=== PATIENT | female | born 1965 | race Two or more races ===

== ENCOUNTER 2020-10-12 20:04 | Inpatient (IN) | payer MEDICAID, OTHER ==
[~2020-10-12] VITALS: Ht 165.1 cm; Wt 85.6 kg
[2020-10-12] MEDS ORDERED: DexAMETHasone INJECTION 10 MG in D5W 5% 50 ML IV ONE (21:45)
[2020-10-12 22:11] LABS: Basophils # (auto) 0 10 ^3/uL (0-0.2); Basophils % (auto) 0.5 % (0.0-2.0); Eosinophils # (auto) 0 10 ^3/uL (0-0.8); Eosinophils % (auto) 0.4 % (0.0-7.0); Hematocrit 40.6 % (36.0-46.0); Hemoglobin 14.2 g/dL (12.2-16.2); Lymphocytes # (auto) 1.5 10 ^3/uL (0.4-5.4); Lymphocytes % (auto) 18.3 % (10.0-50.0); Mean Corpuscular Hemoglobin 30.7 pg (28.0-32.0); Mean Corpuscular Volume 87.9 fL (80.0-100.0); Monocytes # (auto) 0.4 10 ^3/uL (0-1.3); Monocytes % (auto) 5.5 % (0.0-12.0); Neutrophils # (auto) 6.1 10 ^3/uL (1.6-8.6); Neutrophils % (auto) 75.3 % (37.0-80.0); Nucleated Red Blood Cells % 0.1 %; Red Blood Cells 4.61 10^6/uL (4.0-5.20); Red Cell Distribution Width 13.4 % (11.8-14.3); White Blood Cell 8.1 10^3/uL (4.4-10.8)
[2020-10-12 22:32] LABS: Albumin 3.7 g/dL (3.4-5.0); Anion Gap 6 (5-15); Blood Urea Nitrogen 19 mg/dL (7-18); Carbon Dioxide 24 mmol/L (21-32); Chloride 103 mmol/L (98-107); Glucose 132 mg/dL (74-106); Magnesium 2.5 mg/dL (1.6-2.6); Potassium 3.5 mmol/L (3.5-5.1); Sodium 133 mmol/L (136-145)
[2020-10-12 22:42] LABS: INR 0.91 (0.9-1.15); Partial Thromboplastin Time 26.6 sec (23.0-31.2)
[2020-10-12 22:48] LABS: Alanine Aminotransferase 87 U/L (13-56); Alkaline Phosphatase 91 U/L (45-117); Aspartate Aminotransferase 57 U/L (15-37); BUN/Creatinine Ratio 18.4; Bilirubin, Total 0.6 mg/dL (0.2-1.0); CRP High Sensitivity 2.45 mg/dL (< 0.3); GFR African American 71 mL/min; GFR Non-African American 59 mL/min; Lactate Dehydrogenase 266 U/L (84-246); Total Protein 8.2 g/dL (6.4-8.2)
[2020-10-12 23:09] LABS: Urine Bacteria NONE SEEN /hpf (None Seen); Urine Blood Negative /uL (Negative); Urine Mucus FEW (None Seen); Urine Specific Gravity 1.011 (1.001-1.035); Urine WBC 1 /hpf (0 - 5)
[2020-10-13] MEDS ORDERED: DEXTROSE (50%) 50ML SYRG IV PRN (02:45)
[2020-10-13] MEDS ORDERED: ACETAMINOPHEN 500 MG TAB PO PRN (02:45)
[2020-10-13] MEDS ORDERED: ONDANSETRON HCL 4 MG/2 ML VIAL IV PRN (02:45)
[2020-10-13] MEDS ORDERED: NITROGLYCERIN 0.4 MG SL TAB SL PRN (02:45)
[2020-10-13] MEDS ORDERED: SODIUM CHLORIDE 0.9% 1,000 ML IV SCH (02:45)
[2020-10-13] MEDS ORDERED: MORPHINE SULFATE INJECTION 2 MG/ML SYRG IV PRN (02:45)
[2020-10-13] MEDS ORDERED: TEMAZEPAM 15 MG CAP PO ONE (02:45)
[2020-10-13] MEDS ORDERED: DOCUSATE SOD 100 MG CAP PO PRN (02:45)
[2020-10-13] MEDS: DOXYCYCLINE 100MG/250ML 250 ML IV SCH ×2 (03:12→22:52)
[2020-10-13 05:10] VITALS: BP 117/77
[2020-10-13 05:30] VITALS: BP 117/77
[2020-10-13] MEDS: InsuLIN REG 1unit/0.01ml Soln (100units/ml) SC SCH ×4 (06:44→22:00)
[2020-10-13] MEDS: ACCU-CHEK COMFORT CURVE STRIP VI SCH ×4 (06:44→22:08)
[2020-10-13 08:00] VITALS: BP 125/72
[2020-10-13] MEDS: BUDESONIDE (INHALATION) 180 MCG IH IN SCH ×2 (09:35→22:00)
[2020-10-13] MEDS: ALBUTEROL SULF HFA 90MCG INH 200DOSE IN PRN ×2 (09:35→22:33)
[2020-10-13] MEDS: MULTIPLE VITAMIN TAB PO SCH (10:20)
[2020-10-13] MEDS: ZINC SULFATE 220mg CAP or TAB PO SCH (10:20)
[2020-10-13] MEDS: FAMOTIDINE (10MG/ML) 2ML VL IV SCH ×2 (10:20→22:52)
[2020-10-13] MEDS: CHOLECALCIFEROL (VITD3) 2,000 UNIT CAP/TAB PO SCH (10:20)
[2020-10-13] MEDS: DexAMETHasone SOD PHOS 10MG/1ML VIAL INJ IV SCH (10:20)
[2020-10-13] MEDS: ENOXAPARIN SOD 40 MG/0.4 ML SYRINGE SC SCH ×2 (10:20→22:08)
[2020-10-13] MEDS: ASCORBIC ACID 1,000 MG TAB PO SCH (10:20)
[2020-10-13] MEDS ORDERED: diphenhdrAMINE HCL 50 MG/1 ML VL IV PRN (12:30)
[2020-10-13] MEDS ORDERED: REMDESIVIR PER PHARMACY 0 ML IV SCH (12:30)
[2020-10-13 16:00] VITALS: BP 135/80
[2020-10-13] MEDS ORDERED: REMDESIVIR 200 MG in NS 210ml LOADING DOSE ADULT IV ONE ×2 (17:00→20:00)
[2020-10-13 23:57] VITALS: BP 110/53
[2020-10-14] MEDS: ACCU-CHEK COMFORT CURVE STRIP VI SCH ×4 (06:33→21:37)
[2020-10-14 06:34] LABS: Basophils # (auto) 0 10 ^3/uL (0-0.2); Basophils % (auto) 0.1 % (0.0-2.0); Eosinophils # (auto) 0 10 ^3/uL (0-0.8); Hematocrit 36.1 % (36.0-46.0); Hemoglobin 12.9 g/dL (12.2-16.2); Lymphocytes # (auto) 1.7 10 ^3/uL (0.4-5.4); Lymphocytes % (auto) 15.1 % (10.0-50.0); Mean Corpuscular Hemoglobin 31.2 pg (28.0-32.0); Mean Corpuscular Hgb Conc. 35.8 g/dL (32.0-36.0); Monocytes # (auto) 0.3 10 ^3/uL (0-1.3); Monocytes % (auto) 2.9 % (0.0-12.0); Neutrophils # (auto) 8.9 10 ^3/uL (1.6-8.6); Neutrophils % (auto) 81.9 % (37.0-80.0); Nucleated Red Blood Cells % 0.1 %; Red Blood Cells 4.15 10^6/uL (4.0-5.20); Red Cell Distribution Width 13.4 % (11.8-14.3); White Blood Cell 10.9 10^3/uL (4.4-10.8)
[2020-10-14] MEDS: InsuLIN REG 1unit/0.01ml Soln (100units/ml) SC SCH ×3 (06:37→17:45)
[2020-10-14] MEDS: ALBUTEROL SULF HFA 90MCG INH 200DOSE IN PRN ×2 (06:45→21:25)
[2020-10-14] MEDS: BUDESONIDE (INHALATION) 180 MCG IH IN SCH ×2 (06:45→19:04)
[2020-10-14 06:49] LABS: Albumin 3.3 g/dL (3.4-5.0); Calcium 8.3 mg/dL (8.5-10.1); Potassium 3.1 mmol/L (3.5-5.1)
[2020-10-14 06:54] LABS: BUN/Creatinine Ratio 24.3; Bilirubin, Total 0.6 mg/dL (0.2-1.0); Total Protein 7.4 g/dL (6.4-8.2)
[2020-10-14 08:00] VITALS: BP 129/70
[2020-10-14] MEDS: DexAMETHasone SOD PHOS 10MG/1ML VIAL INJ IV SCH (12:00)
[2020-10-14] MEDS: CHOLECALCIFEROL (VITD3) 2,000 UNIT CAP/TAB PO SCH (12:00)
[2020-10-14] MEDS: FAMOTIDINE (10MG/ML) 2ML VL IV SCH ×2 (12:00→21:35)
[2020-10-14] MEDS: ZINC SULFATE 220mg CAP or TAB PO SCH (12:00)
[2020-10-14] MEDS: MULTIPLE VITAMIN TAB PO SCH (12:00)
[2020-10-14] MEDS: FUROSEMIDE 20 MG/2 ML VIAL IV SCH (12:00)
[2020-10-14] MEDS: DOXYCYCLINE 100MG/250ML 250 ML IV SCH ×2 (12:00→21:37)
[2020-10-14] MEDS: POTASSIUM CHL 20 Meq TABLET PO SCH ×2 (12:00→21:36)
[2020-10-14] MEDS: ASCORBIC ACID 1,000 MG TAB PO SCH (12:00)
[2020-10-14] MEDS: ENOXAPARIN SOD 40 MG/0.4 ML SYRINGE SC SCH ×2 (12:00→21:36)
[2020-10-14] MEDS: REMDESIVIR 100mg 100 MG in SODIUM CHL 0.9% 230 ML IV SCH (15:20)
[2020-10-14 15:54] VITALS: BP 118/58
[2020-10-14] MEDS: HYDROcodone-ACET 5/325MG TAB PO PRN (21:52)
[2020-10-14 23:30] VITALS: BP 111/52
[2020-10-15] MEDS: InsuLIN REG 1unit/0.01ml Soln (100units/ml) SC SCH ×5 (01:07→22:11)
[2020-10-15 01:43] VITALS: BP 134/74
[2020-10-15 01:56] VITALS: BP 119/73
[2020-10-15 02:01] VITALS: BP 121/68
[2020-10-15 05:11] VITALS: BP 136/74
[2020-10-15] MEDS: ACCU-CHEK COMFORT CURVE STRIP VI SCH ×4 (06:48→21:55)
[2020-10-15 07:29] LABS: Albumin 3.3 g/dL (3.4-5.0); Calcium 8.3 mg/dL (8.5-10.1); Potassium 3.4 mmol/L (3.5-5.1)
[2020-10-15 07:39] LABS: BUN/Creatinine Ratio 31.7; Bilirubin, Total 0.7 mg/dL (0.2-1.0); Total Protein 7.8 g/dL (6.4-8.2)
[2020-10-15 08:00] VITALS: BP 121/62
[2020-10-15] MEDS: DexAMETHasone SOD PHOS 10MG/1ML VIAL INJ IV SCH (10:17)
[2020-10-15] MEDS: FUROSEMIDE 20 MG/2 ML VIAL IV SCH (10:19)
[2020-10-15] MEDS: DOXYCYCLINE 100MG/250ML 250 ML IV SCH ×2 (10:19→21:54)
[2020-10-15] MEDS: FAMOTIDINE (10MG/ML) 2ML VL IV SCH ×2 (10:20→21:54)
[2020-10-15] MEDS: ASCORBIC ACID 1,000 MG TAB PO SCH (10:20)
[2020-10-15] MEDS: CHOLECALCIFEROL (VITD3) 2,000 UNIT CAP/TAB PO SCH (10:20)
[2020-10-15] MEDS: MULTIPLE VITAMIN TAB PO SCH (10:20)
[2020-10-15] MEDS: POTASSIUM CHL 20 Meq TABLET PO SCH ×2 (10:20→21:55)
[2020-10-15] MEDS: ZINC SULFATE 220mg CAP or TAB PO SCH (10:20)
[2020-10-15] MEDS: ENOXAPARIN SOD 40 MG/0.4 ML SYRINGE SC SCH ×2 (10:21→21:55)
[2020-10-15] MEDS: THROAT LOZENGES(CEPASTAT) MT PRN (14:33)
[2020-10-15] MEDS: guaiFENesin-DM 100/10mg/5ml SYR PO PRN (14:34)
[2020-10-15] MEDS: REMDESIVIR 100mg 100 MG in SODIUM CHL 0.9% 230 ML IV SCH (15:00)
[2020-10-15] MEDS ORDERED: FUROSEMIDE 20 MG/2 ML VIAL IV ONE (15:15)
[2020-10-15 16:10] VITALS: BP 106/62
[2020-10-15] MEDS ORDERED: FUROSEMIDE 20 MG/2 ML VIAL ONE (16:52)
[2020-10-15] MEDS: BUDESONIDE (INHALATION) 180 MCG IH IN SCH ×2 (21:17→22:00)
[2020-10-16] VITALS: BP 119/69
[2020-10-16] MEDS ORDERED: LORazepam 0.5 MG TAB PO ONE (02:45)
[2020-10-16] MEDS: BUDESONIDE (INHALATION) 180 MCG IH IN SCH ×2 (06:40→19:56)
[2020-10-16] MEDS: ALBUTEROL SULF HFA 90MCG INH 200DOSE IN PRN ×3 (06:40→19:56)
[2020-10-16] MEDS: InsuLIN REG 1unit/0.01ml Soln (100units/ml) SC SCH ×4 (06:42→21:33)
[2020-10-16] MEDS: ACCU-CHEK COMFORT CURVE STRIP VI SCH ×4 (06:42→21:32)
[2020-10-16 07:45] LABS: Albumin 3.6 g/dL (3.4-5.0); Calcium 8.7 mg/dL (8.5-10.1); Potassium 3.4 mmol/L (3.5-5.1)
[2020-10-16 07:50] LABS: BUN/Creatinine Ratio 35.7; Bilirubin, Total 0.9 mg/dL (0.2-1.0); Total Protein 8.3 g/dL (6.4-8.2)
[2020-10-16 08:00] VITALS: BP 126/67
[2020-10-16] MEDS: DexAMETHasone SOD PHOS 10MG/1ML VIAL INJ IV SCH (10:22)
[2020-10-16] MEDS: DOXYCYCLINE 100MG/250ML 250 ML IV SCH ×2 (10:22→21:31)
[2020-10-16] MEDS: FAMOTIDINE (10MG/ML) 2ML VL IV SCH ×2 (10:22→21:31)
[2020-10-16] MEDS: ENOXAPARIN SOD 40 MG/0.4 ML SYRINGE SC SCH ×2 (10:23→21:32)
[2020-10-16] MEDS: FUROSEMIDE 40 MG/4 ML VIAL IV SCH (10:24)
[2020-10-16] MEDS: CHOLECALCIFEROL (VITD3) 2,000 UNIT CAP/TAB PO SCH (10:24)
[2020-10-16] MEDS: ASCORBIC ACID 1,000 MG TAB PO SCH (10:38)
[2020-10-16] MEDS: MULTIPLE VITAMIN TAB PO SCH (10:38)
[2020-10-16] MEDS: POTASSIUM CHL 20 Meq TABLET PO SCH ×2 (10:38→21:32)
[2020-10-16] MEDS: ZINC SULFATE 220mg CAP or TAB PO SCH (10:38)
[2020-10-16] MEDS: HYDROcodone-ACET 5/325MG TAB PO PRN ×2 (11:45→18:54)
[2020-10-16 15:42] VITALS: BP_SYST 116; BP_SYST 130; BP_DIAS 59; BP_DIAS 64
[2020-10-16] MEDS: REMDESIVIR 100mg 100 MG in SODIUM CHL 0.9% 230 ML IV SCH (15:52)
[2020-10-16] MEDS: guaiFENesin-DM 100/10mg/5ml SYR PO PRN (18:54)
[2020-10-16] MEDS: TEMAZEPAM 15 MG CAP PO PRN (21:32)
[2020-10-16 23:49] VITALS: BP 160/63
[2020-10-17] MEDS: ACCU-CHEK COMFORT CURVE STRIP VI SCH ×4 (06:26→21:32)
[2020-10-17] MEDS: InsuLIN REG 1unit/0.01ml Soln (100units/ml) SC SCH ×4 (06:26→21:33)
[2020-10-17] MEDS: BUDESONIDE (INHALATION) 180 MCG IH IN SCH ×2 (06:40→20:16)
[2020-10-17] MEDS: ALBUTEROL SULF HFA 90MCG INH 200DOSE IN PRN ×3 (06:40→20:16)
[2020-10-17 07:22] LABS: Basophils # (auto) 0 10 ^3/uL (0-0.2); Basophils % (auto) 0.1 % (0.0-2.0); Eosinophils # (auto) 0 10 ^3/uL (0-0.8); Eosinophils % (auto) 0.2 % (0.0-7.0); Hematocrit 40.3 % (36.0-46.0); Lymphocytes # (auto) 2.4 10 ^3/uL (0.4-5.4); Lymphocytes % (auto) 30.9 % (10.0-50.0); Mean Corpuscular Hemoglobin 30.1 pg (28.0-32.0); Mean Corpuscular Hgb Conc. 34.7 g/dL (32.0-36.0); Mean Corpuscular Volume 86.8 fL (80.0-100.0); Monocytes # (auto) 0.8 10 ^3/uL (0-1.3); Neutrophils # (auto) 4.7 10 ^3/uL (1.6-8.6); Neutrophils % (auto) 58.8 % (37.0-80.0); Nucleated Red Blood Cells % 0.1 %; Red Blood Cells 4.64 10^6/uL (4.0-5.20); Red Cell Distribution Width 13.1 % (11.8-14.3); White Blood Cell 7.9 10^3/uL (4.4-10.8)
[2020-10-17] MEDS: HYDROcodone-ACET 5/325MG TAB PO PRN ×2 (07:22→16:48)
[2020-10-17] MEDS: guaiFENesin-DM 100/10mg/5ml SYR PO PRN ×2 (07:22→16:48)
[2020-10-17 07:32] LABS: Potassium 3.9 mmol/L (3.5-5.1)
[2020-10-17 07:53] LABS: Albumin 3.6 g/dL (3.4-5.0); BUN/Creatinine Ratio 44.4; CRP High Sensitivity 1.25 mg/dL (< 0.3); Calcium 8.6 mg/dL (8.5-10.1); Total Protein 7.5 g/dL (6.4-8.2)
[2020-10-17 08:00] VITALS: BP 122/61
[2020-10-17] MEDS: DexAMETHasone SOD PHOS 10MG/1ML VIAL INJ IV SCH (09:42)
[2020-10-17] MEDS: DOXYCYCLINE 100MG/250ML 250 ML IV SCH ×2 (09:42→21:31)
[2020-10-17] MEDS: ENOXAPARIN SOD 40 MG/0.4 ML SYRINGE SC SCH ×2 (09:43→21:32)
[2020-10-17] MEDS: FAMOTIDINE (10MG/ML) 2ML VL IV SCH ×2 (09:43→21:31)
[2020-10-17] MEDS: FUROSEMIDE 40 MG/4 ML VIAL IV SCH (09:43)
[2020-10-17] MEDS: ASCORBIC ACID 1,000 MG TAB PO SCH (09:43)
[2020-10-17] MEDS: ZINC SULFATE 220mg CAP or TAB PO SCH (09:44)
[2020-10-17] MEDS: POTASSIUM CHL 20 Meq TABLET PO SCH ×2 (09:44→21:32)
[2020-10-17] MEDS: MULTIPLE VITAMIN TAB PO SCH (09:44)
[2020-10-17] MEDS: CHOLECALCIFEROL (VITD3) 2,000 UNIT CAP/TAB PO SCH (09:44)
[2020-10-17 13:00] VITALS: BP 112/63
[2020-10-17] MEDS: REMDESIVIR 100mg 100 MG in SODIUM CHL 0.9% 230 ML IV SCH (15:00)
[2020-10-17 16:00] VITALS: BP 117/66
[2020-10-17 22:00] VITALS: BP 117/71
[2020-10-18] VITALS (8 sets, daily range): BP systolic 100–117; BP diastolic 53–71
[2020-10-18] MEDS: ACCU-CHEK COMFORT CURVE STRIP VI SCH ×4 (06:24→21:42)
[2020-10-18] MEDS: InsuLIN REG 1unit/0.01ml Soln (100units/ml) SC SCH ×4 (06:24→22:38)
[2020-10-18] MEDS: ALBUTEROL SULF HFA 90MCG INH 200DOSE IN PRN ×2 (07:25→19:45)
[2020-10-18] MEDS: BUDESONIDE (INHALATION) 180 MCG IH IN SCH ×2 (07:25→19:45)
[2020-10-18] MEDS: DexAMETHasone SOD PHOS 10MG/1ML VIAL INJ IV SCH (10:08)
[2020-10-18] MEDS: ZINC SULFATE 220mg CAP or TAB PO SCH (10:08)
[2020-10-18] MEDS: FAMOTIDINE (10MG/ML) 2ML VL IV SCH ×2 (10:08→21:41)
[2020-10-18] MEDS: FUROSEMIDE 40 MG/4 ML VIAL IV SCH (10:08)
[2020-10-18] MEDS: guaiFENesin-DM 100/10mg/5ml SYR PO PRN ×3 (10:09→22:36)
[2020-10-18] MEDS: ASCORBIC ACID 1,000 MG TAB PO SCH (10:09)
[2020-10-18] MEDS: CHOLECALCIFEROL (VITD3) 2,000 UNIT CAP/TAB PO SCH (10:09)
[2020-10-18] MEDS: POTASSIUM CHL 20 Meq TABLET PO SCH ×2 (10:09→21:42)
[2020-10-18] MEDS: MULTIPLE VITAMIN TAB PO SCH (10:09)
[2020-10-18] MEDS: ENOXAPARIN SOD 40 MG/0.4 ML SYRINGE SC SCH ×2 (10:09→21:42)
[2020-10-18] MEDS: HYDROcodone-ACET 5/325MG TAB PO PRN (10:10)
[2020-10-18] MEDS: THROAT LOZENGES(CEPASTAT) MT PRN (22:36)
[2020-10-18] MEDS: TEMAZEPAM 15 MG CAP PO PRN (22:36)
[2020-10-19 05:08] VITALS: BP 118/66
[2020-10-19] MEDS: BUDESONIDE (INHALATION) 180 MCG IH IN SCH (06:21)
[2020-10-19] MEDS: ALBUTEROL SULF HFA 90MCG INH 200DOSE IN PRN (06:21)
[2020-10-19] MEDS: ACCU-CHEK COMFORT CURVE STRIP VI SCH ×3 (06:27→16:45)
[2020-10-19] MEDS: InsuLIN REG 1unit/0.01ml Soln (100units/ml) SC SCH ×3 (06:27→16:45)
[2020-10-19] MEDS: guaiFENesin-DM 100/10mg/5ml SYR PO PRN (06:29)
[2020-10-19] MEDS: ZINC SULFATE 220mg CAP or TAB PO SCH (08:20)
[2020-10-19] MEDS: FAMOTIDINE (10MG/ML) 2ML VL IV SCH (08:21)
[2020-10-19] MEDS: CHOLECALCIFEROL (VITD3) 2,000 UNIT CAP/TAB PO SCH (08:21)
[2020-10-19] MEDS: POTASSIUM CHL 20 Meq TABLET PO SCH (08:21)
[2020-10-19] MEDS: ENOXAPARIN SOD 40 MG/0.4 ML SYRINGE SC SCH (08:21)
[2020-10-19] MEDS: MULTIPLE VITAMIN TAB PO SCH (08:21)
[2020-10-19] MEDS: ASCORBIC ACID 1,000 MG TAB PO SCH (08:21)
[2020-10-19] MEDS: FUROSEMIDE 40 MG/4 ML VIAL IV SCH (08:22)
[2020-10-19] MEDS: DexAMETHasone SOD PHOS 10MG/1ML VIAL INJ IV SCH (08:22)
[2020-10-19 09:00] VITALS: BP 109/60
[2020-10-19] MEDS ORDERED: POTA1TAB61 PO (09:30)
[2020-10-19] MEDS ORDERED: ZINC220T6 PO (09:30)
[2020-10-19] MEDS ORDERED: ASCO500T11 PO (09:30)
[2020-10-19] MEDS ORDERED: FURO20TA3 PO (09:30)
[2020-10-19] MEDS ORDERED: ALBUAER3 IN (09:30)
[2020-10-19] MEDS ORDERED: DEX4T PO (09:30)
[2020-10-19] MEDS ORDERED: PANT40TA2 PO (09:30)
[2020-10-19] MEDS ORDERED: CHOL20007 PO (09:30)
[2020-10-19 12:35] VITALS: BP 116/69
[2020-10-19 15:13] VITALS: BP 116/69
[2020-10-19 16:41] VITALS: BP 116/64
== END 2020-10-19 18:05 | disposition home or self-care (01) | DRG 137 ==
LOC: ER 20:04 → TELE 10-13 02:33 → TELE-WESTW 10-13 05:11
PROVIDERS: ADMIT Nurse Practitioner Family; ATTEND Internal Medicine
PROC: XW033E5 Introduction of Remdesivir Anti-infective into Peripheral Vein, Percutaneous Approach, New Technology Group 5 (ICD-10-PCS; 2020-10-13)
PROC: XW13325 Transfusion of Convalescent Plasma (Nonautologous) into Peripheral Vein, Percutaneous Approach, New Technology Group 5 (ICD-10-PCS; principal; 2020-10-15)
DX: U07.1 COVID-19 (principal); J12.82 Pneumonia due to coronavirus disease 2019; E87.1 Hypo-osmolality and hyponatremia; E11.65 Type 2 diabetes mellitus with hyperglycemia; I10 Essential (primary) hypertension; N17.0 Acute kidney failure with tubular necrosis; E43 Unspecified severe protein-calorie malnutrition; E55.9 Vitamin D deficiency, unspecified; Z68.32 Body mass index [BMI] 32.0-32.9, adult; J96.01 Acute respiratory failure with hypoxia; Z86.718 Personal history of other venous thrombosis and embolism
CPT/HCPCS: 36415; 36600; 71045; 80053; 81001; 82306; 82728; 82805; 82962; 83036; 83605; 83615; 83735; 83880; 84443; 84484; 85025; 85379; 85610; 85730; 86141; 86850; 86900; 86901; 87040; 87426; 93005; 94640; 96361; 96365; G0378; J1100; J1815; J2405; J3490; J7060

== ENCOUNTER 2021-02-19 15:06 | Inpatient (IN) | payer MEDICAID ==
[~2021-02-19] VITALS: Ht 157.5 cm; Wt 47.0 kg
[~2021-02-19 15:06] MED LIST: ALBUAER3 IN; ASCO500T11 PO; CHOL20007 PO; DEX4T PO; FURO20TA3 PO; PANT40TA2 PO; POTA1TAB61 PO; ZINC220T6 PO
[2021-02-19] MEDS ORDERED: methylPREDNISolone SOD SUCC 125 MG/2 ML VL IV ONE (15:45)
[2021-02-19] MEDS ORDERED: ALBUTEROL SULF 2.5 MG/0.5ML(0.5%) NEB SOLN HHN ONE (15:45)
[2021-02-19] MEDS ORDERED: IPRATROPIUM BROM 0.5 MG/2.5ML INH SOL HHN ONE (15:45)
[2021-02-19 16:01] LABS: Basophils # (auto) 0.1 10 ^3/uL (0-0.2); Basophils % (auto) 1.2 % (0.0-2.0); Eosinophils # (auto) 0.3 10 ^3/uL (0-0.8); Eosinophils % (auto) 3.7 % (0.0-7.0); Hematocrit 40.5 % (36.0-46.0); Hemoglobin 14.4 g/dL (12.2-16.2); Lymphocytes # (auto) 3.5 10 ^3/uL (0.4-5.4); Lymphocytes % (auto) 44.3 % (10.0-50.0); Mean Corpuscular Hgb Conc. 35.7 g/dL (32.0-36.0); Mean Corpuscular Volume 86.9 fL (80.0-100.0); Monocytes # (auto) 0.8 10 ^3/uL (0-1.3); Monocytes % (auto) 9.9 % (0.0-12.0); Neutrophils # (auto) 3.2 10 ^3/uL (1.6-8.6); Neutrophils % (auto) 40.9 % (37.0-80.0); Nucleated Red Blood Cells % 0.1 %; Platelet Count (auto) 249 10^3/uL (140-450); Red Blood Cells 4.66 10^6/uL (4.0-5.20); Red Cell Distribution Width 12.8 % (11.8-14.3); White Blood Cell 7.9 10^3/uL (4.4-10.8)
[2021-02-19 16:17] LABS: Albumin 4.1 g/dL (3.4-5.0); Anion Gap 6 (5-15); BUN/Creatinine Ratio 19.4; Blood Urea Nitrogen 18 mg/dL (7-18); Carbon Dioxide 27 mmol/L (21-32); Chloride 109 mmol/L (98-107); GFR African American 80 mL/min; GFR Non-African American 66 mL/min; Glucose 102 mg/dL (74-106); Sodium 142 mmol/L (136-145)
[2021-02-19 16:26] LABS: Alanine Aminotransferase 70 U/L (13-56); Alkaline Phosphatase 107 U/L (45-117); Aspartate Aminotransferase 44 U/L (15-37); Bilirubin, Total 0.6 mg/dL (0.2-1.0); Total Protein 8.1 g/dL (6.4-8.2)
[2021-02-19] MEDS ORDERED: IPRATROPIUM BROM 0.5 MG/2.5ML INH SOL NEB PRN (19:00)
[2021-02-19] MEDS ORDERED: ACETAMINOPHEN 500 MG TAB PO PRN (19:00)
[2021-02-19] MEDS ORDERED: MORPHINE SULF INJ 2 MG/ML SYRINGE 1ML IV PRN ×2 (19:00)
[2021-02-19] MEDS ORDERED: NITROGLYCERIN 0.4 MG SL TAB SL PRN (19:00)
[2021-02-19] MEDS ORDERED: ONDANSETRON HCL 4 MG/2 ML VIAL IV PRN (19:00)
[2021-02-19] MEDS ORDERED: ALBUTEROL SULF 2.5 MG/0.5ML(0.5%) NEB SOLN NEB PRN (19:00)
[2021-02-19] MEDS ORDERED: HYDROcodone-ACET 5/325MG TAB PO PRN (19:00)
[2021-02-19] MEDS ORDERED: hydrALAZINE HCL 20 MG/ML VL IV PRN (19:00)
[2021-02-19] MEDS ORDERED: IOHEXOL 350 MG/ML 100ML IJ ONE (19:14)
[2021-02-19] MEDS ORDERED: ATORVASTATIN 20 MG TAB PO SCH (22:00)
[2021-02-20 00:57] VITALS: BP 139/77
[2021-02-20] MEDS: METOPROLOL TARTRATE 25 MG TAB PO SCH ×2 (04:06→09:45)
[2021-02-20 07:18] LABS: Basophils # (auto) 0.1 10 ^3/uL (0-0.2); Eosinophils # (auto) 0 10 ^3/uL (0-0.8); Hematocrit 42.2 % (36.0-46.0); Hemoglobin 14.9 g/dL (12.2-16.2); Lymphocytes % (auto) 21.9 % (10.0-50.0); Mean Corpuscular Hemoglobin 30.8 pg (28.0-32.0); Mean Corpuscular Hgb Conc. 35.3 g/dL (32.0-36.0); Mean Corpuscular Volume 87.3 fL (80.0-100.0); Monocytes # (auto) 0.2 10 ^3/uL (0-1.3); Monocytes % (auto) 2.1 % (0.0-12.0); Neutrophils # (auto) 6.9 10 ^3/uL (1.6-8.6); Nucleated Red Blood Cells % 0.1 %; Platelet Count (auto) 254 10^3/uL (140-450); Red Blood Cells 4.83 10^6/uL (4.0-5.20); White Blood Cell 9.2 10^3/uL (4.4-10.8)
[2021-02-20 07:31] LABS: INR 1.04 (0.9-1.15); Partial Thromboplastin Time 25.2 sec (23.0-31.2)
[2021-02-20 07:40] LABS: Calcium 9.5 mg/dL (8.5-10.1); Potassium 3.9 mmol/L (3.5-5.1)
[2021-02-20] MEDS ORDERED: ASPirin-EC 81 mg tab PO SCH (10:00)
[2021-02-20] MEDS ORDERED: LISINOPRIL 10 MG TAB PO SCH (10:00)
[2021-02-20] MEDS ORDERED: FAMOTIDINE 20 MG TAB PO SCH (10:00)
[2021-02-20 13:00] VITALS: BP 141/69
[2021-02-20 17:00] VITALS: BP 108/56
[2021-02-20] MEDS ORDERED: MET25T PO (19:02)
[2021-02-20 20:00] VITALS: BP 135/80
== END 2021-02-20 20:20 | disposition home health service (06) | DRG 203 ==
LOC: ER 15:06 → TELE 18:57 → TELE-CENTR 02-20 08:35
PROVIDERS: ADMIT Nurse Practitioner Acute Care; ATTEND Internal Medicine
DX: R07.89 Other chest pain (principal); Z68.41 Body mass index [BMI] 40.0-44.9, adult; E11.9 Type 2 diabetes mellitus without complications; K21.9 Gastro-esophageal reflux disease without esophagitis; E66.9 Obesity, unspecified; Z20.822 Contact with and (suspected) exposure to COVID-19; J45.909 Unspecified asthma, uncomplicated; I10 Essential (primary) hypertension; E78.5 Hyperlipidemia, unspecified; Z79.899 Other long term (current) drug therapy; Z83.3 Family history of diabetes mellitus; Z86.718 Personal history of other venous thrombosis and embolism; Z79.84 Long term (current) use of oral hypoglycemic drugs
CPT/HCPCS: 36415; 71046; 71275; 80048; 80053; 82728; 82962; 83880; 84484; 85025; 85379; 85610; 85730; 86141; 87426; 93005; 93306; 94640; 96374; G0378

== ENCOUNTER 2021-11-09 13:43 | Emergency (ER) | payer MEDICAID ==
[~2021-11-09] VITALS: Ht 152.4 cm; Wt 68.0 kg
[~2021-11-09 13:43] MED LIST changes: -ALBUAER3 IN; -ASCO500T11 PO; -CHOL20007 PO; -DEX4T PO; -FURO20TA3 PO; +MET25T PO; -POTA1TAB61 PO; -ZINC220T6 PO
[2021-11-09] MEDS ORDERED: LORazepam 0.5 MG TAB PO ONE (14:00)
[2021-11-09] MEDS ORDERED: ASPirin 81 mg TAB PO ONE (14:00)
[2021-11-09 15:48] LABS: Basophils # (auto) 0.1 10 ^3/uL (0-0.2); Basophils % (auto) 0.8 % (0.0-2.0); Eosinophils # (auto) 0.1 10 ^3/uL (0-0.8); Eosinophils % (auto) 1.1 % (0.0-7.0); Hematocrit 40.4 % (36.0-46.0); Hemoglobin 13.9 g/dL (12.2-16.2); Lymphocytes # (auto) 2.4 10 ^3/uL (0.4-5.4); Lymphocytes % (auto) 28.2 % (10.0-50.0); Mean Corpuscular Hemoglobin 29.8 pg (28.0-32.0); Mean Corpuscular Hgb Conc. 34.5 g/dL (32.0-36.0); Mean Corpuscular Volume 86.5 fL (80.0-100.0); Monocytes # (auto) 0.6 10 ^3/uL (0-1.3); Monocytes % (auto) 7.1 % (0.0-12.0); Neutrophils # (auto) 5.4 10 ^3/uL (1.6-8.6); Neutrophils % (auto) 62.8 % (37.0-80.0); Nucleated Red Blood Cells % 0.1 %; Red Blood Cells 4.67 10^6/uL (4.0-5.20); Red Cell Distribution Width 12.9 % (11.8-14.3); White Blood Cell 8.6 10^3/uL (4.4-10.8)
[2021-11-09 16:03] LABS: Albumin 4.2 g/dL (3.4-5.0); Magnesium 2.3 mg/dL (1.6-2.6); Potassium 3.5 mmol/L (3.5-5.1)
[2021-11-09 16:09] LABS: BUN/Creatinine Ratio 23.7; Bilirubin, Total 0.8 mg/dL (0.2-1.0); Total Protein 8.1 g/dL (6.4-8.2)
[2021-11-09 16:54] VITALS: BP 127/70
== END 2021-11-09 16:58 | disposition home or self-care (01) ==
LOC: EDBD 13:43 → ER 13:43
DX: R07.89 Other chest pain (principal); F41.9 Anxiety disorder, unspecified; I10 Essential (primary) hypertension; E11.9 Type 2 diabetes mellitus without complications; J45.909 Unspecified asthma, uncomplicated; Z79.899 Other long term (current) drug therapy
CPT/HCPCS: 36415; 71045; 80053; 83735; 84443; 84484; 85025; 93005

== ENCOUNTER 2023-03-24 18:49 | Emergency (ER) | payer MEDICAID ==
[~2023-03-24] VITALS: Ht 165.1 cm; Wt 89.6 kg
[2023-03-24 22:10] LABS: Urine Bacteria NONE SEEN /hpf (None Seen); Urine Blood Negative /uL (Negative); Urine Specific Gravity 1.025 (1.001-1.035); Urine WBC 3 /hpf (0 - 5)
[2023-03-24 23:31] LABS: Basophils # (auto) 0.1 10 ^3/uL (0-0.2); Basophils % (auto) 1.3 % (0.0-2.0); Eosinophils # (auto) 0.2 10 ^3/uL (0-0.8); Eosinophils % (auto) 2.2 % (0.0-7.0); Hematocrit 40.4 % (36.0-46.0); Hemoglobin 13.8 g/dL (12.2-16.2); Lymphocytes # (auto) 4.1 10 ^3/uL (0.4-5.4); Lymphocytes % (auto) 41.5 % (10.0-50.0); Mean Corpuscular Hemoglobin 30.3 pg (28.0-32.0); Mean Corpuscular Hgb Conc. 34.2 g/dL (32.0-36.0); Mean Corpuscular Volume 88.7 fL (80.0-100.0); Monocytes # (auto) 0.6 10 ^3/uL (0-1.3); Monocytes % (auto) 6.3 % (0.0-12.0); Neutrophils # (auto) 4.8 10 ^3/uL (1.6-8.6); Neutrophils % (auto) 48.7 % (37.0-80.0); Nucleated Red Blood Cells % 0.1 %; Red Blood Cells 4.56 10^6/uL (4.0-5.20); Red Cell Distribution Width 13.4 % (11.8-14.3); White Blood Cell 9.8 10^3/uL (4.4-10.8)
[2023-03-24 23:54] LABS: Albumin 4.2 g/dL (3.4-5.0); Calcium 8.8 mg/dL (8.5-10.1); Potassium 3.7 mmol/L (3.5-5.1)
[2023-03-24 23:58] LABS: BUN/Creatinine Ratio 27.5 (10.0-20.0); Bilirubin, Total 0.6 mg/dL (0.2-1.0); Total Protein 8.5 g/dL (6.4-8.2)
[2023-03-25 00:39] VITALS: BP 152/72; PULSE 76; RESP 16; TEMP 98.1; O2SAT 95
[2023-03-25] MEDS ORDERED: ONDANSETRON ODT 4 MG TAB PO ONE (01:00)
[2023-03-25] MEDS ORDERED: CIPROFLOXACIN HCL 500 MG TAB PO ONE (01:00)
[2023-03-25] MEDS ORDERED: metroNIDAZOLE 500 MG TAB PO ONE (01:00)
[2023-03-25] MEDS ORDERED: HYDROcodone-ACET 5/325MG TAB PO ONE (01:00)
[2023-03-25] MEDS ORDERED: ZOFR4T PO (01:06)
[2023-03-25] MEDS ORDERED: DICY10CA PO (01:06)
[2023-03-25] MEDS ORDERED: CIPR500T4 PO (01:06)
[2023-03-25] MEDS ORDERED: MET500T PO (01:06)
== END 2023-03-25 01:44 | disposition home or self-care (01) ==
LOC: ER 18:49
DX: K57.92 Diverticulitis of intestine, part unspecified, without perforation or abscess without bleeding (principal); K76.0 Fatty (change of) liver, not elsewhere classified; N39.0 Urinary tract infection, site not specified; N83.201 Unspecified ovarian cyst, right side; J45.909 Unspecified asthma, uncomplicated; E11.9 Type 2 diabetes mellitus without complications; E78.5 Hyperlipidemia, unspecified; I10 Essential (primary) hypertension
CPT/HCPCS: 36415; 74176; 80053; 81001; 83690; 85025; 99284; Q0162

== ENCOUNTER 2023-08-25 20:20 | Emergency (ER) | payer MEDICAID ==
[~2023-08-25] VITALS: Ht 165.1 cm; Wt 85.9 kg
[~2023-08-25 20:20] MED LIST changes: +CIPR500T4 PO; +DICY10CA PO; +MET500T PO; +ZOFR4T PO
[2023-08-25 21:36] LABS: Basophils # (auto) 0.1 10 ^3/uL (0-0.2); Basophils % (auto) 0.9 % (0.0-2.0); Eosinophils # (auto) 0.2 10 ^3/uL (0-0.8); Eosinophils % (auto) 1.6 % (0.0-7.0); Hematocrit 39.7 % (36.0-46.0); Hemoglobin 13.7 g/dL (12.2-16.2); Lymphocytes # (auto) 3.8 10 ^3/uL (0.4-5.4); Lymphocytes % (auto) 32.8 % (10.0-50.0); Mean Corpuscular Hemoglobin 30.6 pg (28.0-32.0); Mean Corpuscular Hgb Conc. 34.7 g/dL (32.0-36.0); Mean Corpuscular Volume 88.3 fL (80.0-100.0); Monocytes # (auto) 0.7 10 ^3/uL (0-1.3); Neutrophils # (auto) 6.7 10 ^3/uL (1.6-8.6); Neutrophils % (auto) 58.7 % (37.0-80.0); Nucleated Red Blood Cells % 0.1 %; Red Blood Cells 4.49 10^6/uL (4.0-5.20); White Blood Cell 11.5 10^3/uL (4.4-10.8)
[2023-08-25 21:39] LABS: Alanine Aminotransferase 35 U/L (7-40); Alkaline Phosphatase 84 U/L (46-116); Anion Gap 10 (5-15); BUN/Creatinine Ratio 19.3 (10.0-20.0); Blood Urea Nitrogen 16 mg/dL (9-23); Calcium 9.6 mg/dL (8.7-10.4); Carbon Dioxide 21 mmol/L (20-30); Chloride 110 mmol/L (98-107); Glucose 121 mg/dL (74-106); Lipase 41 U/L (12-53); Potassium 3.8 mmol/L (3.5-5.1); Sodium 141 mmol/L (136-145)
[2023-08-25 21:40] LABS: Albumin 4.9 g/dL (3.2-4.8); Bilirubin, Total 0.6 mg/dL (0.2-1.0); Total Protein 7.7 g/dL (5.7-8.2)
[2023-08-25 21:57] LABS: Aspartate Aminotransferase 29 U/L (13-40)
[2023-08-25 22:00] LABS: Urine Bacteria MOD /hpf (None Seen); Urine Blood 3+ /uL (Negative); Urine Budding Yeast MODERATE /hpf (None Seen); Urine Clarity HAZY (Clear); Urine Color Yellow (Yellow); Urine Mucus FEW (None Seen); Urine Protein, UAD 2+ (Negative); Urine Specific Gravity 1.026 (1.001-1.035); Urine WBC 557 /hpf (0 - 5); Urine WBC Clumps PRESENT /hpf (None Seen)
[2023-08-25] MEDS ORDERED: levoFLOXacin 500 MG TAB PO ONE (22:45)
[2023-08-25 23:49] VITALS: BP 112/67; PULSE 66; RESP 16; O2SAT 96
[2023-08-26] MEDS ORDERED: LEVO750T8 PO (04:50)
[2023-08-26] MEDS ORDERED: HYDR-4902 PO (04:50)
== END 2023-08-26 05:48 | disposition left against medical advice (07) ==
LOC: ER 20:20
DX: N39.0 Urinary tract infection, site not specified (principal); N83.291 Other ovarian cyst, right side; I10 Essential (primary) hypertension; E11.9 Type 2 diabetes mellitus without complications; E78.5 Hyperlipidemia, unspecified; J45.909 Unspecified asthma, uncomplicated; Z79.899 Other long term (current) drug therapy
CPT/HCPCS: 36415; 76856; 80053; 81001; 82962; 83690; 85025

== ENCOUNTER 2023-11-05 11:45 | Emergency (ER) | payer MEDICAID ==
[~2023-11-05] VITALS: Ht 170.2 cm; Wt 84.0 kg
[~2023-11-05 11:45] MED LIST changes: +HYDR-4902 PO; +LEVO750T8 PO
[2023-11-05] MEDS ORDERED: SODIUM CHLORIDE 0.9% 1,000 ML IV ONE (12:00)
[2023-11-05 12:08] LABS: Basophils # (auto) 0.1 10 ^3/uL (0-0.2); Basophils % (auto) 0.9 % (0.0-2.0); Eosinophils # (auto) 0.2 10 ^3/uL (0-0.8); Eosinophils % (auto) 2.7 % (0.0-7.0); Hematocrit 38.7 % (36.0-46.0); Hemoglobin 13.3 g/dL (12.2-16.2); Lymphocytes # (auto) 3.4 10 ^3/uL (0.4-5.4); Mean Corpuscular Hemoglobin 29.8 pg (28.0-32.0); Mean Corpuscular Hgb Conc. 34.3 g/dL (32.0-36.0); Monocytes # (auto) 0.6 10 ^3/uL (0-1.3); Monocytes % (auto) 8.1 % (0.0-12.0); Neutrophils # (auto) 3.1 10 ^3/uL (1.6-8.6); Neutrophils % (auto) 42.3 % (37.0-80.0); Nucleated Red Blood Cells % 0.1 %; Red Blood Cells 4.45 10^6/uL (4.0-5.20); Red Cell Distribution Width 13.2 % (11.8-14.3); White Blood Cell 7.4 10^3/uL (4.4-10.8)
[2023-11-05 12:24] LABS: Alanine Aminotransferase 34 U/L (7-40); Albumin 4.6 g/dL (3.2-4.8); Alkaline Phosphatase 81 U/L (46-116); Anion Gap 6 (5-15); Aspartate Aminotransferase 31 U/L (13-40); Bilirubin, Total 1.2 mg/dL (0.2-1.0); Blood Urea Nitrogen 18 mg/dL (9-23); Calcium 9.4 mg/dL (8.7-10.4); Carbon Dioxide 26 mmol/L (20-30); Chloride 108 mmol/L (98-107); Glucose 92 mg/dL (74-106); INR 1.03 (0.9-1.15); Potassium 3.9 mmol/L (3.5-5.1); Prothrombin Time 10.8 sec (9.3-11.8); Sodium 140 mmol/L (136-145); Total Protein 7.2 g/dL (5.7-8.2)
[2023-11-05 13:47] VITALS: PULSE 64; RESP 20; O2SAT 95
[2023-11-05 13:49] VITALS: BP 138/51; PULSE 64; RESP 20; TEMP 98.1; O2SAT 95
== END 2023-11-05 13:49 | disposition home or self-care (01) ==
LOC: ER 11:45 → EDBD 11:45 → ER 13:49
DX: R07.89 Other chest pain (principal); R42 Dizziness and giddiness; R53.1 Weakness; I10 Essential (primary) hypertension; E11.9 Type 2 diabetes mellitus without complications; E78.5 Hyperlipidemia, unspecified; K21.9 Gastro-esophageal reflux disease without esophagitis; J45.909 Unspecified asthma, uncomplicated; Z79.2 Long term (current) use of antibiotics; Z79.899 Other long term (current) drug therapy
CPT/HCPCS: 36415; 71045; 80053; 83735; 84484; 85025; 85610; 85730; 93005

== ENCOUNTER 2024-07-31 15:24 | Emergency (ER) | payer MEDICAID ==
[~2024-07-31] VITALS: Ht 162.6 cm; Wt 81.8 kg
--- NOTE | 2024-07-31 16:31 | ED.PDOC ---
Eye-HPI HPI Comments A 59 YEAR OLD FEMALE PRESENTS TO THE ED WITH COMPLAINT OF RIGHT EAR PAIN. PATIENT STATES SHE HAS BEEN EXPERIENCING RIGHT EAR PAIN FOR THE PAST 1 WEEK. PATIENT DENIES FEVER, CHILLS, SHORTNESS OF BREATH, CHEST PAIN, ABDOMINAL PAIN, NAUSEA, VOMITING, HEADACHE, OR OTHER COMPLAINTS. NO OTHER SYMPTOMS OR MODIFYING FACTORS AT THIS TIME. PATIENT IS ALERT, ORIENTED X 4, AND HAS STEADY GAIT. Chief Complaint: Earache Time Seen by MD: 15:29 Primary Care Provider: SATHISH Villagomez Notes: Nurses Notes, Medications, Allergies Allergies: Coded Allergies: NO KNOWN ALLERGIES (Unverified , 02/19/21) Home Meds Active Scripts Hydrocodone-Acetaminophen (Hydrocodone Bitartrate/AC 5-325 mg) 1 Tab Tab, 1 TAB PO QID, #20 TAB Prov:HAYDEN SHAH MD 08/26/23 Levofloxacin (Levaquin 750 mg) 750 Mg Tab, 1 TAB PO DAILY, #5 TAB Prov:HAYDEN SHAH MD 08/26/23 Ciprofloxacin Hcl (Ciprofloxacin Hcl) 500 Mg Tab, 1 TAB PO BID for 10 Days, #20 TAB Prov:KATLIN UDENAS Q SILK PRINTER 03/25/23 Metronidazole (Metronidazole) 500 Mg Tab, 500 TAB PO Q8HR for 10 Days, #30 TAB Prov:KATLIN DUENAS Q SILK PRINTER 03/25/23 Ondansetron Odt 4MG Tab (ZOFRAN PO) 4 Mg Tb, 1 TAB PO Q8HR, #20 TAB ODT TAB-DISSOLVE IN MOUTH, THEN SWALLOW needed for nausea vomiting Prov:KATLIN DUENAS Q SILK PRINTER 03/25/23 Dicyclomine Hcl (BENTYL CAPSULE) 10 Mg Cp, 2 CAP PO Q8HR, #30 CAP Needed for abdominal cramping Prov:KATLIN DUENAS Q SILK PRINTER 03/25/23 Metoprolol Tartrate (Lopressor) 25 Mg Tb, 25 MG PO BID, #60 TAB Check blood pressure before each dose. Hold for systolic blood pressure or top number below 140mmHg. Prov:RENATO LANE MD 02/20/21 Pantoprazole Sodium Sesquihydr (Protonix) 40 Mg Tab, 40 MG PO DAILY, #30 TAB Prov:HAYDEE COOL MD 10/19/20 Information Source: Patient Mode of Arrival: Ambulatory Timing: Days Duration: Since onset, Days Prehospital treatment: None Quality: Pain, Red Lids: Normal Conjunctiva: Normal Cornea: Normal Pupils: Normal EOM: Normal Fundus: Normal Slit lamp exam: Normal Anterior chamber: Normal Mouth: Normal ENT Ear Exam: Normal, Red, Bulging, Dull, Normal Nose: Normal Sinuses: Normal Oropharynx: Normal Onset: Spontaneous Throat Exposed to: None History of: None Last Tetanus: Unknown Modifying factors: Nothing Associated signs and symptoms: Ear Pain Past Medical History PAST MEDICAL HISTORY: Asthma, Depression, DM, GERD, High Lipids, HTN Surgical History: Denies all surgeries [employer]PERATOR History: Ovarian Cysts Family History Family History: Reviewed,noncontributory to illness Social History Smoker: Non-Smoker Alcohol: Denies ETOH Use Drugs: Denies Drug Use Lives In: Home Constitutional: denies: chills, diaphoresis, fatigue, fever, malaise, sweats, weakness, others EENTM: reports: ear pain (RIGHT EAR PAIN), ear ringing; denies: blurred vision, double vision, ear bleeding, ear discharge, ear drainage, eye pain, eye redness, hearing loss, mouth pain, mouth swelling, nasal discharge, nose bleeding, nose congestion, nose pain, photophobia, tearing, throat pain, throat swelling, voice changes, others Respiratory: denies: cough, hemoptysis, orthopnea, SOB at rest, shortness of breath, SOB with excertion, stridor, wheezing, others Cardiovascular: denies: chest pain, dizzy spells, diaphoresis, Dyspnea on exertion, edema, irregular heart beat, left arm pain, lightheadedness, palpitations, PND, syncope, others Gastrointestinal: denies: abdomen distended, abdominal pain, blood streaked bowels, constipated, diarrhea, dysphagia, difficulty swallowing, hematemesis, melena, nausea, poor appetite, poor fluid intake, rectal bleeding, rectal pain, vomiting, others Genitourinary: denies: abnormal vagina bleeding, burning, dyspareunia, dysuria, flank pain, frequency, hematuria, incontinence, pain, , vagina discharge, urgency, others Neurological: denies: dizziness, fainting, headache, left sided numbness, left sided weakness, numbness, paresthesia, pre-existing deficit, right sided numbness, right sided weakness, seizure, speech problems, tingling, tremors, weakness, others Musculoskeletal: denies: back pain, gout, joint pain, joint swelling, muscle pain, muscle stiffness, neck pain, others Integumetry: denies: bruises, change in color, change in hair/nails, dryness, laceration, lesions, lumps, rash, wounds, others Allergic/Immunocompromised: denies: Difficulty Healing, Frequent Infections, H michael, Itching, others Hematologic/Lymphatic: denies: anemia, blood clots, easy bleeding, easy bruising, swollen glands, others Endocrine: denies: excessive hunger, excessive sweating, excessive thirst, excessive urination, flushing, intolerance to cold, intolerance to heat, unexplained weight gain, unexplained weight loss, others Psychiatric: denies: anxiety, bipolar disorder, depression, hopeless, panic disorder, schizophrenia, sleepless, suicidal, others All Other Systems: Reviewed and Negative Physical Exam General Appearance: No Apparent Distress, Normal HEENT: PERRL/EOMI, Pharynx Normal, TM Abnormal (R) (ERYTHEMA AND DULL OF RIGHT TM, NO DRAINAGE AND BLOOD CLOTS. ) Neck: Full Range of Motion, Non-Tender, Normal, Normal Inspection Respiratory: Chest Non-Tender, Lungs Clear, No Accessory Muscle Use, No Respiratory Distress, Normal Breath Sounds Cardiovascular: No Edema, No JVD, No Murmur, No Gallop, Normal Peripheral Pulses, Regular Rate/Rhythm Breast Exam: Deferred Gastrointestinal: No Organomegaly, Non Tender, No Pulsatile Mass, Normal Bowel Sounds, Soft Genitalia: Deferred Pelvic: Deferred Rectal: Deferred Extremities: No calf tenderness, Normal capillary refill, Normal inspection, Normal range of motion, Non-tender, No pedal edema Musculoskeletal : Apperance: Normal Neurologic: Alert, skull chopper II-XII nml as Tested, No Motor Deficits, Normal Affect, Normal Mood, No Sensory Deficits Cerebellar Function: Normal Reflexes: Normal Skin: Dry, Normal Color, Warm Peripheral Pulses: 2+ carotid (R), 2+ carotid (L) Lymphatic: No Adenopathy Was a procedure done? Was a procedure done?: No EENT DIFF Eye: N/A Ear: Cerumen Impaction, Otitis Externa, Otitis Media, Dental, Pharyngitis, Sinusitis Nose: N/A Mouth: N/A Sore Throat: N/A X-Ray, Labs, Meds, VS Vital Signs Date Time Temp Pulse Resp B/P (MAP) Pulse Ox O2 Delivery O2 Flow Rate FiO2 07/31/24 16:32 97.9 67 18 131/65 (87) 97 97.9 07/31/24 16:32 67 18 97 Room Air 07/31/24 16:29 83 16 96 Room Air 07/31/24 16:29 97.5 83 16 132/66 (88) 96 97.5 07/31/24 15:56 97.5 83 16 132/66 (88) 96 X-Ray, Labs, Meds, VS Comment BASED ON MY CLINICAL EXAM FINDINGS THE PATIENT IS SAFE TO DISCHARGE. PATIENT WILL BE PRESCRIBED AUGMENTIN AND I HAVE INSTRUCTED HER TO FOLLOW UP WITH HER PCP IN 1-2 DAYS. Time of 1ST Reevaluation: 17:00 Reevaluation 1ST: Improved Patient Education/Counseling: Diagnosis, Treatment, Need For Follow Up Family Education/Counseling: Diagnosis, Treatment, Need For Follow Up Medical Screening: No EMC Exist At This Time Departure 1 Departure Time of Disposition: 17:00 Impression: Primary Impression: Otitis media of right ear Qualified Codes: H65.01 - Acute serous otitis media, right ear Disposition: HOME / SELF CARE / HOMELESS Condition: Stable Additional Instructions: FOLLOW UP WITH PCP IN 1-2 DAYS . TAKE MEDICATIONS PRESCRIBED. RETURN TO ED FOR ANY NEW OR WORSENING SYMPTOMS. e-Prescriptions Ibuprofen (Ibuprofen) 800 Mg Tab 1 TAB PO TID, #30 TAB Prov: ABDELRAHMAN BISHOP 07/31/24 Amoxicillin & Pot Clavulanate (AUGMENTIN TABLET) 875 Mg Tb 875 MG PO BID, #20 TAB Prov: ABDELRAHMAN BISHOP 07/31/24 Discharged With: Self, Spouse Critical Care Note Critical Care Time?: No Stability Stability form required: No I personally scribed for ABDELRAHMAN BISHOP ([email or web address]) on 07/31/24 at 16:31. Electronically submitted by Choco Van ([email or web address]). ABDELRAHMAN BISHOP Jul 31, 2024 16:31
[2024-07-31 16:32] VITALS: BP 131/65; PULSE 67; RESP 18; TEMP 97.9; O2SAT 97
[2024-07-31] MEDS ORDERED: IBUP-1456 PO (16:40)
[2024-07-31] MEDS ORDERED: AUG875T PO (16:40)
== END 2024-07-31 16:52 | disposition home or self-care (01) ==
LOC: ER 15:24
DX: H66.91 Otitis media, unspecified, right ear (principal); Z79.899 Other long term (current) drug therapy